=== PATIENT | female | born 1985 | race Caucasian/White ===

== ENCOUNTER 2021-11-30 14:52 | Emergency (ER) | payer MEDICAID ==
[2021-11-30] MEDS ORDERED: Bacitracin Oint 1 GM U/D Packet TOP ONE (15:09)
[2021-11-30] MEDS ORDERED: Lidocaine 1% PF 2 ML SDV INJECT ONE (15:09)
[2021-11-30] MEDS ORDERED: Amoxicillin/Clavulanate K 875-125 MG Tab PO ONE (15:09)
[2021-11-30] MEDS ORDERED: Diphtheria,Pertussis(Acell),Tetanus Vaccine 0.5 ML Syringe IM ONE (15:09)
[2021-11-30] MEDS ORDERED: Acetaminophen/HYDROcodone 325-5 MG Tab PO ONE (15:27)
== END 2021-11-30 16:19 | disposition home or self-care (01) ==
LOC: MW.ED 14:52
DX: S41.152A Open bite of left upper arm, initial encounter (principal); Z88.0 Allergy status to penicillin; Z23 Encounter for immunization; Z79.899 Other long term (current) drug therapy; W54.0XXA Bitten by dog, initial encounter
CPT/HCPCS: 12001; 90471; 90715; 99283; A9270